=== PATIENT | female | born 1985 | race Two or more races ===

== ENCOUNTER 2019-04-18 21:11 | Emergency (ER) | payer OTHER ==
[~2019-04-18] VITALS: Ht 162.6 cm; Wt 93.4 kg
[~2019-04-18 21:11] MED LIST: AMOX1TAB12 PO; AMPICILLIN500 MG/VIA; ATABEX EC CAPL1 EACH; HYDROCHLOROTH12.5 M1; HYZAAR 100-251 UDTAB PO; KETO10TA2 PO; LABETALOL HCL100 MG; LABETALOL HCL100 MG PO; LISINOPRIL20 MG; MONISTAT 31 EA VG; PEPCID40 MG PO; ZANTAC300 MG PO; ZOFRAN4 MG PO
[2019-04-19] MEDS ORDERED: TUSNEL LIQUID178 ML PO (02:03)
== END 2019-04-19 02:24 | disposition home or self-care (01) ==
LOC: ER 21:11
DX: O98.512 Other viral diseases complicating pregnancy, second trimester (principal); B34.9 Viral infection, unspecified; Z34.02 Encounter for supervision of normal first pregnancy, second trimester

== ENCOUNTER 2019-05-18 17:15 | Inpatient (IN) | payer OTHER ==
[~2019-05-18] VITALS: Ht 162.6 cm; Wt 97.1 kg
[~2019-05-18 17:15] MED LIST changes: +TUSNEL LIQUID178 ML PO
[2019-05-19] MEDS ORDERED: PRENATAL TABLE1 EAC1 PO (09:53)
[2019-05-19] MEDS ORDERED: ASPIR 8181 MG PO (09:53)
== END 2019-05-24 12:38 | disposition home or self-care (01) | DRG 832 ==
LOC: OBS/DEL 17:15 → OB/GYN 05-19 08:36 → LDR 05-19 08:36 → OB/GYN 05-20 16:39
PROVIDERS: ADMIT Obstetrics & Gynecology
PROC: BY4FZZZ Ultrasonography of Third Trimester, Single Fetus (ICD-10-PCS; principal; 2019-05-19)
PROC: 4A1HXCZ Monitoring of Products of Conception, Cardiac Rate, External Approach (ICD-10-PCS; 2019-05-19)
DX: O47.03 False labor before 37 completed weeks of gestation, third trimester (principal); O14.03 Mild to moderate pre-eclampsia, third trimester

== ENCOUNTER 2019-05-27 00:31 | Outpatient (CLI) | payer OTHER ==
[~2019-05-27 00:31] MED LIST changes: +ASPIR 8181 MG PO; +PRENATAL TABLE1 EAC1 PO
== END 2019-05-27 15:07 | disposition home or self-care (01) ==
LOC: OBS/DEL 00:31
DX: O14.03 Mild to moderate pre-eclampsia, third trimester (principal)

== ENCOUNTER 2019-05-28 13:15 | Outpatient (CLI) | payer OTHER | END 2019-05-29 14:43 | disposition home or self-care (01) | LOC: OBS/DEL 13:15 | DX: O14.03 Mild to moderate pre-eclampsia, third trimester (principal) ==

== ENCOUNTER 2019-06-23 08:45 | Outpatient (CLI) | payer OTHER | END 2019-06-23 21:49 | disposition home or self-care (01) | LOC: OBS/DEL 08:45 | DX: O26.893 Other specified pregnancy related conditions, third trimester (principal); N20.0 Calculus of kidney; N20.1 Calculus of ureter ==

== ENCOUNTER 2019-06-25 06:06 | Outpatient (CLI) | payer OTHER | END 2019-06-25 16:15 | disposition home or self-care (01) | LOC: OBS/DEL 06:06 | DX: O16.3 Unspecified maternal hypertension, third trimester (principal) ==

== ENCOUNTER 2019-06-30 22:44 | Inpatient (IN) | payer OTHER ==
[~2019-06-30] VITALS: Ht 162.6 cm; Wt 3.2 kg
[2019-07-06] MEDS ORDERED: LABETALOL HCL200 MG PO (19:27)
== END 2019-07-05 14:12 | disposition home or self-care (01) | DRG 785 ==
LOC: OBS/DEL 22:44 → LDR 07-01 08:48 → OB/GYN 07-01 08:48
PROVIDERS: ADMIT Obstetrics & Gynecology
PROC: 4A1HXCZ Monitoring of Products of Conception, Cardiac Rate, External Approach (ICD-10-PCS; 2019-07-01)
PROC: 0UL70ZZ Occlusion of Bilateral Fallopian Tubes, Open Approach (ICD-10-PCS; 2019-07-02)
PROC: 10D00Z1 Extraction of Products of Conception, Low, Open Approach (ICD-10-PCS; principal; 2019-07-02 12:00)
DX: O82 Encounter for cesarean delivery without indication (principal); O14.04 Mild to moderate pre-eclampsia, complicating childbirth; Z3A.37 37 weeks gestation of pregnancy; Z37.0 Single live birth; Z30.2 Encounter for sterilization

== ENCOUNTER 2019-07-06 19:13 | Emergency (ER) | payer OTHER ==
[~2019-07-06] VITALS: Ht 162.6 cm; Wt 96.2 kg
[2019-07-06] MEDS ORDERED: LABETALOL HCL200 MG PO (19:27)
== END 2019-07-06 20:36 | disposition home or self-care (01) ==
LOC: ER 19:13
DX: I16.0 Hypertensive urgency (principal); I10 Essential (primary) hypertension